=== PATIENT | female | born 1975 | race Two or more races ===

== ENCOUNTER 2017-08-12 13:56 | Emergency (ER) | payer MEDICAID ==
[~2017-08-12] VITALS: Ht 170.2 cm; Wt 120.2 kg
[~2017-08-12 13:56] MED LIST: GLIP10TA59 PO; METF500T5 PO
[2017-08-12 15:11] VITALS: BP 148/89
[2017-08-12 15:58] LABS: Urine Blood 3+ /uL (Negative); Urine Specific Gravity 1.004 (1.001-1.035)
[2017-08-12 16:03] LABS: Urine Bacteria FEW /hpf (None Seen); Urine WBC 25 /hpf (0 - 5)
[2017-08-12] MEDS ORDERED: PHENAZOPYRIDINE HCL 100 MG TAB PO ONE (16:15)
== END 2017-08-12 16:21 | disposition home or self-care (01) ==
LOC: ER 13:56
DX: N39.0 Urinary tract infection, site not specified (principal); E11.9 Type 2 diabetes mellitus without complications
CPT/HCPCS: 81001

== ENCOUNTER 2021-02-04 12:07 | Emergency (ER) | payer MEDICAID ==
[~2021-02-04] VITALS: Ht 175.3 cm; Wt 108.9 kg
[~2021-02-04 12:07] MED LIST changes: -GLIP10TA59 PO; +GLIP1TAB8 PO; +METF-916 PO; -METF500T5 PO
[2021-02-04 13:03] LABS: Basophils # (auto) 0.1 10 ^3/uL (0-0.2); Basophils % (auto) 0.8 % (0.0-2.0); Eosinophils # (auto) 0.1 10 ^3/uL (0-0.8); Eosinophils % (auto) 0.7 % (0.0-7.0); Hematocrit 39.2 % (36.0-46.0); Hemoglobin 13.1 g/dL (12.2-16.2); Lymphocytes # (auto) 3.5 10 ^3/uL (0.4-5.4); Lymphocytes % (auto) 31.2 % (10.0-50.0); Mean Corpuscular Hemoglobin 28.1 pg (28.0-32.0); Mean Corpuscular Hgb Conc. 33.4 g/dL (32.0-36.0); Mean Corpuscular Volume 84.3 fL (80.0-100.0); Monocytes # (auto) 0.7 10 ^3/uL (0-1.3); Monocytes % (auto) 5.9 % (0.0-12.0); Neutrophils # (auto) 6.8 10 ^3/uL (1.6-8.6); Neutrophils % (auto) 61.4 % (37.0-80.0); Platelet Count (auto) 316 10^3/uL (140-450); Red Blood Cells 4.65 10^6/uL (4.0-5.20); Red Cell Distribution Width 15.5 % (11.8-14.3); White Blood Cell 11.1 10^3/uL (4.4-10.8)
[2021-02-04 13:10] LABS: Urine Bacteria FEW /hpf (None Seen); Urine Blood 3+ /uL (Negative); Urine Specific Gravity 1.036 (1.001-1.035); Urine WBC 453 /hpf (0 - 5)
[2021-02-04 13:21] LABS: Albumin 3.5 g/dL (3.4-5.0); BUN/Creatinine Ratio 15.2; Calcium 9.3 mg/dL (8.5-10.1)
[2021-02-04 13:24] LABS: Bilirubin, Total 0.3 mg/dL (0.2-1.0)
[2021-02-04] MEDS ORDERED: cefTRIAXone 1GM/50ML D5W 50 ML IV ONE ×2 (14:00)
[2021-02-04] MEDS ORDERED: SODIUM CHLORIDE 0.9% 1,000 ML IV ONE (14:00)
[2021-02-04 15:03] VITALS: BP 141/69
== END 2021-02-04 15:39 | disposition home or self-care (01) ==
LOC: ER 12:07
DX: N93.8 Other specified abnormal uterine and vaginal bleeding (principal); N39.0 Urinary tract infection, site not specified; E11.9 Type 2 diabetes mellitus without complications; Z79.899 Other long term (current) drug therapy
CPT/HCPCS: 36415; 74176; 80053; 81001; 84702; 85025; 85049; 96365; 99284; J0696; J7030

== ENCOUNTER 2021-02-16 12:21 | Emergency (ER) | payer MEDICAID ==
[~2021-02-16] VITALS: Ht 175.3 cm; Wt 108.9 kg
[2021-02-16 13:38] LABS: Basophils # (auto) 0.1 10 ^3/uL (0-0.2); Basophils % (auto) 0.5 % (0.0-2.0); Eosinophils # (auto) 0.2 10 ^3/uL (0-0.8); Eosinophils % (auto) 1.5 % (0.0-7.0); Hematocrit 36.8 % (36.0-46.0); Hemoglobin 12.2 g/dL (12.2-16.2); Lymphocytes # (auto) 3.5 10 ^3/uL (0.4-5.4); Lymphocytes % (auto) 32.6 % (10.0-50.0); Mean Corpuscular Hemoglobin 27.7 pg (28.0-32.0); Mean Corpuscular Hgb Conc. 33.1 g/dL (32.0-36.0); Mean Corpuscular Volume 83.8 fL (80.0-100.0); Monocytes # (auto) 0.6 10 ^3/uL (0-1.3); Monocytes % (auto) 5.7 % (0.0-12.0); Neutrophils # (auto) 6.4 10 ^3/uL (1.6-8.6); Neutrophils % (auto) 59.7 % (37.0-80.0); Red Blood Cells 4.39 10^6/uL (4.0-5.20); Red Cell Distribution Width 15.2 % (11.8-14.3); White Blood Cell 10.7 10^3/uL (4.4-10.8)
[2021-02-16 13:55] LABS: Urine Bacteria NONE SEEN /hpf (None Seen); Urine Blood 3+ /uL (Negative); Urine WBC 1016 /hpf (0 - 5)
[2021-02-16 13:57] LABS: Urine Specific Gravity 1.028 (1.001-1.035)
[2021-02-16 14:07] LABS: Potassium 4.4 mmol/L (3.5-5.1)
[2021-02-16 14:25] LABS: Albumin 3.6 g/dL (3.4-5.0); BUN/Creatinine Ratio 24.6; Bilirubin, Total 0.2 mg/dL (0.2-1.0); Calcium 9.2 mg/dL (8.5-10.1)
[2021-02-16 15:20] VITALS: BP 130/74
== END 2021-02-16 15:23 | disposition home or self-care (01) ==
LOC: ER 12:21
DX: N93.8 Other specified abnormal uterine and vaginal bleeding (principal); N39.0 Urinary tract infection, site not specified; E11.9 Type 2 diabetes mellitus without complications; Z79.899 Other long term (current) drug therapy
CPT/HCPCS: 36415; 80053; 81001; 85025

== ENCOUNTER 2025-04-30 08:49 | Inpatient (IN) | payer MEDICAID ==
[~2025-04-30] VITALS: Ht 175.3 cm; Wt 104.2 kg
[~2025-04-30 08:49] MED LIST changes: +METF-1145 PO; -METF-916 PO
--- NOTE | 2025-04-30 09:14 | ED.PDOC ---
GI ASSESSMENT HPI Comments A 50 YEAR OLD FEMALE PRESENTS TO THE ED WITH COMPLAINT OF ABDOMINAL PAIN. PATIENT REPORTS HAVING LEFT-SIDED ABDOMINAL PAIN FOR THE PAST WEEK ASSOCIATED WITH NAUSEA AND DIARRHEA. PATIENT STATES THAT THE PAIN SOMETIMES RADIATES DOWN TO THE LEFT LOWER QUADRANT REGION. PER PT, SHE WAS UNABLE TO SLEEP DUE TO THE PAIN LAST NIGHT. PATIENT DENIES FEVER, CHILLS, SHORTNESS OF BREATH, CHEST PAIN, ABDOMINAL PAIN, NAUSEA, VOMITING, HEADACHE, OR OTHER COMPLAINTS. NO OTHER SYMPTOMS OR MODIFYING FACTORS AT THIS TIME. PATIENT IS ALERT, ORIENTED X 4, AND HAS STEADY GAIT. Chief Complaint: Abdominal Pain Time Seen by MD: 09:00 Primary Care Provider: ALYSHA Reviewed Notes: Nurses Notes, Medications, Allergies (FOR REVIEW ABDOMINAL PAIN ALL RE-INJURY ANYTHING SCAN WAS WIDENING.) Allergies: Coded Allergies: NO KNOWN ALLERGIES (Unverified , 04/16/15) Home Meds Reported Medications Atorvastatin Calcium (ATORVASTATIN CALCIUM) 10 Mg Tab 04/30/25 Metformin Hydrochloride (Metformin Hcl Er) 500 Mg Tab, 500 MG PO BID, #60 04/16/15 Glipizide (Glipizide Xl) 10 Mg Tab, 10 MG PO BID, #60 04/16/15 Information Source: Patient Mode of Arrival: Ambulatory Timing: Days Duration: Since onset (ATINT DAYS), Days Prehospital treatment: None Quality: None Vomitus: None Stool: Loose Severity: Moderate Recent: None Recent Hx of: None Pain Location: RUQ, RLQ Associated sign and symptoms: Nausea, Diarrhea, Abdominal Pain Past Medical History PAST MEDICAL HISTORY: DM Surgical History: CROP AND SOIL TECHNICIAN History: No Pertinent CROP AND SOIL TECHNICIAN History Family History Family History: Reviewed,noncontributory to illness, Unknown Social History Smoker: Non-Smoker Alcohol: Denies ETOH Use Drugs: Denies Drug Use, Cocaine Lives In: Home Constitutional: denies: chills, diaphoresis, fatigue, fever, malaise, sweats, weakness, others EENTM: denies: blurred vision, double vision, ear bleeding, ear discharge, ear drainage, ear pain, ear ringing, eye pain, eye redness, hearing loss, mouth pain, mouth swelling, nasal discharge, nose bleeding, nose congestion, nose pain, photophobia, tearing, throat pain, throat swelling, voice changes, others Respiratory: denies: cough, hemoptysis, orthopnea, SOB at rest, shortness of breath, SOB with excertion, stridor, wheezing, others Cardiovascular: denies: chest pain, dizzy spells, diaphoresis, Dyspnea on exertion, edema, irregular heart beat, left arm pain, lightheadedness, palpitations, PND, syncope, others Gastrointestinal: reports: abdominal pain, diarrhea, nausea; denies: abdomen distended, blood streaked bowels, constipated, dysphagia, difficulty swallowing, hematemesis, melena, poor appetite, poor fluid intake, rectal bleeding, rectal pain, vomiting, others Genitourinary: denies: abnormal vagina bleeding, burning, dyspareunia, dysuria, flank pain, frequency, hematuria, incontinence, pain, , vagina discharge, urgency, others Neurological: denies: dizziness, fainting, headache, left sided numbness, left sided weakness, numbness, paresthesia, pre-existing deficit, right sided numbness, right sided weakness, seizure, speech problems, tingling, tremors, weakness, others Musculoskeletal: denies: back pain, gout, joint pain, joint swelling, muscle pain, muscle stiffness, neck pain, others Integumetry: denies: bruises, change in color, change in hair/nails, dryness, laceration, lesions, lumps, rash, wounds, others Allergic/Immunocompromised: denies: Difficulty Healing, Frequent Infections, Hives, Itching, others Hematologic/Lymphatic: denies: anemia, blood clots, easy bleeding, easy bruising, swollen glands, others Endocrine: denies: excessive hunger, excessive sweating, excessive thirst, excessive urination, flushing, intolerance to cold, intolerance to heat, unexplained weight gain, unexplained weight loss, others Psychiatric: denies: anxiety, bipolar disorder, depression, hopeless, panic disorder, schizophrenia, sleepless, suicidal, others All Other Systems: Reviewed and Negative Physical Exam General Appearance: No Apparent Distress, Normal HEENT: Normal ENT Inspection, Pharynx Normal, TMs Normal Neck: Full Range of Motion, Non-Tender, Normal, Normal Inspection Respiratory: Chest Non-Tender, Lungs Clear, No Accessory Muscle Use, No Respiratory Distress, Normal Breath Sounds Cardiovascular: No Edema, No JVD, No Murmur, No Gallop, Normal Peripheral Pulses, Regular Rate/Rhythm Breast Exam: Deferred Gastrointestinal: LLQ, No Organomegaly, No Pulsatile Mass, Normal Bowel Sounds, Soft, Tenderness (LEFT LOWER ABD WITH MILD GUARDING, NO REBOUND TENDERNESS. ) Genitalia: Deferred Pelvic: Deferred Rectal: Deferred Extremities: No calf tenderness, Normal capillary refill, Normal inspection, Normal range of motion, Non-tender, No pedal edema Musculoskeletal : Apperance: Normal Neurologic: Alert, advertising production manager II-XII nml as Tested, No Motor Deficits, Normal Affect, Normal Mood, No Sensory Deficits Cerebellar Function: Normal Reflexes: Normal Skin: Dry, Normal Color, Warm Peripheral Pulses: 2+ carotid (R), 2+ carotid (L) Lymphatic: No Adenopathy Was a procedure done? Was a procedure done?: No GI differential Dx Differential Diagnosis: Cholangitis, Cholecystitis, Diverticular disease, Gastritis/PUD, Gastroenteritis, UTI, Urolithiasis X-Ray, Labs, Meds, VS Vital Signs Date Time Temp Pulse Resp B/P (MAP) Pulse Ox O2 Delivery O2 Flow Rate FiO2 04/30/25 11:35 98.8 78 18 131/60 (83) 96 98.8 04/30/25 11:35 78 18 96 Room Air 04/30/25 09:15 86 18 97 Room Air 04/30/25 09:15 86 18 137/63 (87) 97 04/30/25 08:52 99.7 89 20 142/77 97 99.7 Lab Test 04/30/25 10:19 04/30/25 09:05 Range/Units Urine Color Light-yellow Yellow Urine Clarity Clear Clear Urine pH 6.5 5.0-9.0 Urine Specific [place] 1.025 1.001-1.035 Urine Protein Negative Negative Urine Ketones 1+ H Negative Urine Blood Negative Negative /uL Urine Nitrite Negative Negative Urine Bilirubin Negative Negative Urine Urobilinogen Normal Negative mg/dL Urine Leukocyte Esterase Negative Negative /uL Urine RBC 2 0 - 4 /hpf Urine Microscopic WBC 1 0-5 /HPF Urine Squamous Epithelial Cells Few <5 /hpf Urine Bacteria Few H None Seen /hpf Urine Glucose 4+ H Normal mg/dL White Blood Count 10.4 4.4-10.8 10^3/uL Red Blood Count 4.71 4.0-5.20 10^6/uL Hemoglobin 14.0 12.2-16.2 g/dL Hematocrit 41.5 36.0-46.0 % Mean Corpuscular Volume 88.1 80.0-100.0 fL Mean Corpuscular Hemoglobin 29.8 28.0-32.0 pg Mean Corpuscular Hemoglobin Concent 33.8 32.0-36.0 g/dL Red Cell Distribution Width 14.2 11.8-14.3 % Platelet Count 261 140-450 10^3/uL Mean Platelet Volume 7.4 6.9-10.8 fL Neutrophils (%) (Auto) 67.6 37.0-80.0 % Lymphocytes (%) (Auto) 23.7 10.0-50.0 % Monocytes (%) (Auto) 7.7 0.0-12.0 % Eosinophils (%) (Auto) 0.7 0.0-7.0 % Basophils (%) (Auto) 0.3 0.0-2.0 % Neutrophils # (Auto) 7.0 1.6-8.6 10 ^3/uL Lymphocytes # (Auto) 2.5 0.4-5.4 10 ^3/uL Monocytes # (Auto) 0.8 0-1.3 10 ^3/uL Eosinophils # (Auto) 0.1 0-0.8 10 ^3/uL Basophils # (Auto) 0 0-0.2 10 ^3/uL Nucleated Red Blood Cells 0.0 % Sodium Level 139 136-145 mmol/L Potassium Level 3.9 3.5-5.1 mmol/L Chloride Level 100 98-107 mmol/L Carbon Dioxide Level 29 20-31 mmol/L Anion Gap 10 5-15 Blood Urea Nitrogen 9 9-23 mg/dL Creatinine 0.79 0.550-1.02 mg/dL Glomerular Filtration Rate Calc 90 >90 mL/min BUN/Creatinine Ratio 11.4 10.0-20.0 Serum Glucose 145 H 74-106 mg/dL Hemoglobin A1c 6.7 H <5.7 % A1C Calcium Level 9.6 8.7-10.4 mg/dL Total Bilirubin 0.8 0.2-1.0 mg/dL Aspartate Amino Transferase (AST) 25 13-40 U/L Alanine Aminotransferase (ALT) 38 7-40 U/L Alkaline Phosphatase 101 46-116 U/L Total Protein 7.8 5.7-8.2 g/dL Albumin 4.6 3.2-4.8 g/dL Lipase 39 12-53 U/L Current Medications Medications (Trade) Dose Ordered Sig/Melissa Route Start Time Stop Time Status Last Admin Levofloxacin/ Dextrose 100 ml @ 100 mls/hr ONCE ONCE IV 04/30/25 11:15 04/30/25 12:15 DC 04/30/25 11:45 Metronidazole 100 ml @ 100 mls/hr ONCE ONCE IV 04/30/25 11:15 04/30/25 12:15 DC 04/30/25 11:46 Ketorolac Tromethamine (Toradol Injection) 30 mg ONCE ONCE IV 04/30/25 11:15 04/30/25 11:29 DC 04/30/25 11:45 Sodium Chloride 1,000 ml @ 1,000 mls/hr Q1H ONCE IV 04/30/25 11:15 04/30/25 12:15 DC 04/30/25 11:33 PATIENT: PERFECTO ECHAVARRIAACCT: [id number]: [id number] : 1975 LOC: ER ROOM / BED: / AGE / SEX: 50 / F ADM STATUS: REG ER SERVICE 0912 ORDERING PHYSICIAN: VICKIE HARRIS PROCEDURE(s): ABPL - CT AB PEL WO CON-NO ORAL OR IV REASON: LEFT SIDE ABD PAIN ORDER NUMBER(s): [id number], ACCESSION NUMBER(s): [id number] Exam: CT CT AB PEL WO CON-NO ORAL OR IV History: LEFT SIDE ABD PAIN Comparison Study: US PELVIC TRANS AB AND TRANSVAG on DOS: 05/09/24 Technique: Multidetector spiral CT of the abdomen was performed from lung bases to pubic symphysis. Imaging was performed without IV contrast. Axial, coronal and sagittal multiplanar reformats were obtained from the axial data set by the technologist. Radiation Dose : 1. Abdomen/Pelvis: CTDIvol 17 mGy, DLP 899 mGy*cm. Findings: Evaluation of solid organs is limited due to lack of intravenous contrast use. Lung Bases: No acute or significant lung base finding. Normal heart size. No pleural or pericardial effusion. Liver: The liver is normal in size. No focal lesions. Gallbladder and Biliary Tree: Unremarkable Spleen: Unremarkable Pancreas: The pancreas is grossly normal in appearance. Adrenal Glands: Unremarkable Kidneys: Right kidney is surgically absent. The left kidney is unremarkable Bladder: Grossly unremarkable for degree of distention. Bowel: The stomach is grossly normal in appearance. Acute diverticulitis of the distal descending colon. No adjacent abscess identified. The appendix is not visualized; however, no secondary findings of acute appendicitis identified. Ascites: Absent Lymphadenopathy: No mesenteric, retroperitoneal or periportal lymphadenopathy. Abdominal Wall and Mesentery: Unremarkable. Vasculature: The visualized abdominal aorta is normal in size and caliber. Evaluation of abdominal and pelvic vessels is limited due to lack of intravenous contrast. Pelvic Organs: Unremarkable Musculoskeletal: No aggressive focal bony lesions, acute fractures or dislocation. IMPRESSION: 1. Acute diverticulitis of the distal descending colon. 2. No adjacent abscess identified. Radiation optimization: All CT scans at this facility use at least one of these dose optimization techniques: automated exposure control mA and/or kV adjustment per patient size (includes targeted exams where dose is matched to clinical indication) or iterative reconstruction. ATED BY: TERESA MEYERS MD DICTATED DATE/TIME: 04/30/251046 SIGNED BY: TERESA MEYERS MD SIGNED DATE/TIME: 04/30/251046 CC: X-Ray, Labs, Meds, VS Comment EXTERNAL MEDICAL RECORDS REVIEWED: [NONE] INDEPENDENT HISTORIANS: [NONE] SOCIAL DETERMINANTS OF HEALTH: [NONE] LABS ORDERED: UA, LIPASE, CMP, CBC REVIEWED AND INTERPRETED RESULTS: NONE IMAGING ORDERED: CT ABDOMEN TREATMENTS ORDERED: 0.9 NS 1L IV, LEVAQUIN 500MG IVP, FLAGYL 500MG IVP AND TORADOL 30MG IVP. PROCEDURES PERFORMED: NONE CRITICAL CARE TIME: NONE I HAVE DISCUSSED THE PATIENT WITH THE ATTENDING PHYSICIAN DR. JOHNSON AND HE AGREES WITH THE PATIENT'S PLAN OF CARE AND DISPOSITION. Time of 1ST Reevaluation: 11:00 Reevaluation 1ST: Unchanged Patient Education/Counseling: Diagnosis, Treatment Family Education/Counseling: Diagnosis, Treatment SEPSIS Sepsis Screen Date sepsis recognized/suspect: Apr 30, 2025 Time Sepsis recognized/suspect: 0854 Recent Procedure: No On Antibiotic Therapy: No Respiratory Rate >20: No Heart Rate >90: No Temp<36 C (96.8 F) or >38.3 C: No SBP <90 or MAP <65 mmHG: No New Acute Mental Status Change: No Is the patient on CPAP, BIPAP,: No Physician Orders Ct Ab Pel Wo Con-No Oral Or Iv (04/30/25 09:12) Heplock Iv (04/30/25 ) Vital Signs Date Time Temp Pulse Resp B/P (MAP) Pulse Ox O2 Delivery O2 Flow Rate FiO2 04/30/25 11:35 98.8 78 18 131/60 (83) 96 98.8 04/30/25 11:35 78 18 96 Room Air 04/30/25 09:15 86 18 97 Room Air 04/30/25 09:15 86 18 137/63 (87) 97 04/30/25 08:52 99.7 89 20 142/77 97 99.7 Laboratory Tests Test 04/30/25 09:05 White Blood Count 10.4 10^3/uL (4.4-10.8) Medications Medications Dose Ordered Sig/Melissa Route Start Time Stop Time Status Last Admin Dose Admin Ketorolac Tromethamine 30 mg ONCE ONCE IV 04/30/25 11:15 04/30/25 11:29 DC 04/30/25 11:45 Levofloxacin/ Dextrose 100 ml @ 100 mls/hr ONCE ONCE IV 04/30/25 11:15 04/30/25 12:15 DC 04/30/25 11:45 Metronidazole 100 ml @ 100 mls/hr ONCE ONCE IV 04/30/25 11:15 04/30/25 12:15 DC 04/30/25 11:46 Sodium Chloride 1,000 ml @ 1,000 mls/hr Q1H ONCE IV 04/30/25 11:15 04/30/25 12:15 DC 04/30/25 11:33 Departure 1 Departure Time of Disposition: 11:00 Impression: Primary Impression: Acute diverticulitis Disposition: ADMITTED INPATIENT Condition: Serious Critical Care Note Critical Care Time?: No Stability Stability form required: Yes Unstable for transfer: Requires medication, ED Physician Assesment, Possible rapid decline I personally scribed for VICKIE HARRIS ([email or web address]) on 04/30/25 at 09:14. Electronically submitted by Kayden Mcclain ([email or web address]). I personally scribed for VICKIE HARRIS ([email or web address]) on 04/30/25 at 11:08. Electronically submitted by Kayden Mcclain ([email or web address]). VICKIE HARRIS Apr 30, 2025 09:14
[2025-04-30 09:42] LABS: Hematocrit 41.5 % (36.0-46.0); Hemoglobin 14.0 g/dL (12.2-16.2); Mean Corpuscular Hemoglobin 29.8 pg (28.0-32.0); Mean Corpuscular Volume 88.1 fL (80.0-100.0); Nucleated Red Blood Cells % 0.0 %
[2025-04-30 10:04] LABS: Alanine Aminotransferase 38 U/L (7-40); Alkaline Phosphatase 101 U/L (46-116); Anion Gap 10 (5-15); BUN/Creatinine Ratio 11.4 (10.0-20.0); Blood Urea Nitrogen 9 mg/dL (9-23); Calcium 9.6 mg/dL (8.7-10.4); Carbon Dioxide 29 mmol/L (20-31); Chloride 100 mmol/L (98-107); Potassium 3.9 mmol/L (3.5-5.1); Sodium 139 mmol/L (136-145); Total Protein 7.8 g/dL (5.7-8.2)
[2025-04-30 10:05] LABS: Albumin 4.6 g/dL (3.2-4.8); Bilirubin, Total 0.8 mg/dL (0.2-1.0); Glucose 145 mg/dL (74-106)
[2025-04-30 10:40] LABS: Urine Protein, UAD Negative (Negative)
[2025-04-30 10:41] LABS: Lipase 39 U/L (12-53)
--- NOTE | 2025-04-30 10:50 | DVH ---
Exam: CT CT AB PEL WO CON-NO ORAL OR IV History: LEFT SIDE ABD PAIN Comparison Study: US PELVIC TRANS AB AND TRANSVAG on DOS: 05/09/24 Technique: Multidetector spiral CT of the abdomen was performed from lung bases to pubic symphysis. Imaging was performed without IV contrast. Axial, coronal and sagittal multiplanar reformats were ob tained from the axial data set by the technologist. Radiation Dose : 1. Abdomen/Pelvis: CTDIvol 17 mGy, DLP 899 mGy*cm. Findings: Evaluation of solid organs is limited due to lack of intravenous contrast use. Lung Bases: No acute or significant lung base finding. Normal heart size. No pleural or pericardial effusion. Liver: The liver is normal in size. No focal lesions. Gallbladder and Biliary Tree: Unremarkable Spleen: Unremarkable Pancreas: The pancreas is grossly normal in appearance. Adrenal Glands: Unremarkable Kidneys: Right kidney is surgically absent. The left kidney is unremarkable Bladder: Grossly unremarkable for degree of distention. Bowel: The stomach is grossly normal in appearance. Acute diverticulitis of the distal descending col on. No adjacent abscess identified. The appendix is not visualized; however, no secondary findings of acute appendicitis identified. Ascites: Absent Lymphadenopathy: No mesenteric, retroperitoneal or periportal lymphadenopathy. Abdominal Wall and Mesentery: Unremarkable. Vasculature: The visualized abdominal aorta is normal in size and caliber. Evaluation of abdominal a nd pelvic vessels is limited due to lack of intravenous contrast. Pelvic Organs: Unremarkable Musculoskeletal: No aggressive focal bony lesions, acute fractures or dislocation. IMPRESSION: 1. Acute diverticulitis of the distal descending colon. 2. No adjacent abscess identified. Radiation optimization: All CT scans at this facility use at least one of these dose optimization satnam hniques: automated exposure control mA and/or kV adjustment per patient size (includes targeted exam s where dose is matched to clinical indication) or iterative reconstruction.
[2025-04-30] MEDS: SODIUM CHLORIDE 0.9% 1,000 ML IV ONE (11:33)
[2025-04-30] MEDS: KETOROLAC TROMETH 30 MG/ML 1ML VIAL IV ONE (11:45)
--- NOTE | 2025-04-30 12:28 | DVHHP2 ---
History of Present Illness Reason for Visit: Abdominal pain History of Present Illness Leticia Rogers is a 50-year-old female with past medical history of diabetes and who presents to the ED with abdominal pain with nausea and vomiting that started 6 weeks ago. She reports that the pain is 7/10 pressure-like and constant in the left lower quadrant radiating to her back. She reports that the pain has worsened over the last week with diarrhea. Patient also reports that she was only born with a left kidney. She is with her son at the chair side. Patient denies any recent trauma or injury, recent sick contacts, recent ingestion of spoiled food, recent travels, chest pain, shortness of breath, fever, chills, lightheadedness, weakness, dizziness, or urinary symptoms. Endocrine: Diabetes Past Medical History Unilateral renal agenesis Past Surgical History: Family History: DM, Hyperlipidemia, Hypertension, Other (Mom with hypertension and hyperlipidemia. Dad with hypertension and diabetes.) Smoke: No ALCOHOL: none Drugs: None Lives: with Family Domestic Violence: Neg Review of Systems Gastrointestinal: Nausea, Vomiting, Abdominal Pain, Diarrhea Allergies: Coded Allergies: NO KNOWN ALLERGIES (Unverified , 04/16/15) Exam Vital Signs Vital Signs Date Time Temp Pulse Resp B/P (MAP) Pulse Ox O2 Delivery O2 Flow Rate FiO2 04/30/25 11:35 98.8 78 18 131/60 (83) 96 98.8 04/30/25 11:35 Room Air General Appearance: Alert, Oriented X3, Cooperative, No acute distress HEENT: Atraumatic, PERRLA, EOMI, Mucous membr. moist/pink Respiratory: Clear to auscultation, Normal air movement Cardiovascular: Regular rate, Normal S1, Normal S2, No murmurs Abdominal: Normal bowel sounds, Soft, Other (Tenderness left lower quadrant upon palpation) Extremities: No clubbing, No cyanosis, No edema, Normal pulses, No tenderness/swelling Skin: No significant lesion Neuro: Normal gait, Normal speech, Strength at 5/5 X4 ext, Normal tone, Sensation intact Psych/Mental Status: Mental status NL, Mood NL Labs/Xrays Labs Test 04/30/25 10:19 04/30/25 09:05 Range/Units Urine Color Light-yellow Yellow Urine Clarity Clear Clear Urine pH 6.5 5.0-9.0 Urine Specific [place] 1.025 1.001-1.035 Urine Protein Negative Negative Urine Ketones 1+ H Negative Urine Blood Negative Negative /uL Urine Nitrite Negative Negative Urine Bilirubin Negative Negative Urine Urobilinogen Normal Negative mg/dL Urine Leukocyte Esterase Negative Negative /uL Urine RBC 2 0 - 4 /hpf Urine Microscopic WBC 1 0-5 /HPF Urine Squamous Epithelial Cells Few <5 /hpf Urine Bacteria Few H None Seen /hpf Urine Glucose 4+ H Normal mg/dL White Blood Count 10.4 4.4-10.8 10^3/uL Red Blood Count 4.71 4.0-5.20 10^6/uL Hemoglobin 14.0 12.2-16.2 g/dL Hematocrit 41.5 36.0-46.0 % Mean Corpuscular Volume 88.1 80.0-100.0 fL Mean Corpuscular Hemoglobin 29.8 28.0-32.0 pg Mean Corpuscular Hemoglobin Concent 33.8 32.0-36.0 g/dL Red Cell Distribution Width 14.2 11.8-14.3 % Platelet Count 261 140-450 10^3/uL Mean Platelet Volume 7.4 6.9-10.8 fL Neutrophils (%) (Auto) 67.6 37.0-80.0 % Lymphocytes (%) (Auto) 23.7 10.0-50.0 % Monocytes (%) (Auto) 7.7 0.0-12.0 % Eosinophils (%) (Auto) 0.7 0.0-7.0 % Basophils (%) (Auto) 0.3 0.0-2.0 % Neutrophils # (Auto) 7.0 1.6-8.6 10 ^3/uL Lymphocytes # (Auto) 2.5 0.4-5.4 10 ^3/uL Monocytes # (Auto) 0.8 0-1.3 10 ^3/uL Eosinophils # (Auto) 0.1 0-0.8 10 ^3/uL Basophils # (Auto) 0 0-0.2 10 ^3/uL Nucleated Red Blood Cells 0.0 % Sodium Level 139 136-145 mmol/L Potassium Level 3.9 3.5-5.1 mmol/L Chloride Level 100 98-107 mmol/L Carbon Dioxide Level 29 20-31 mmol/L Anion Gap 10 5-15 Blood Urea Nitrogen 9 9-23 mg/dL Creatinine 0.79 0.550-1.02 mg/dL Glomerular Filtration Rate Calc 90 >90 mL/min BUN/Creatinine Ratio 11.4 10.0-20.0 Serum Glucose 145 H 74-106 mg/dL Calcium Level 9.6 8.7-10.4 mg/dL Total Bilirubin 0.8 0.2-1.0 mg/dL Aspartate Amino Transferase (AST) 25 13-40 U/L Alanine Aminotransferase (ALT) 38 7-40 U/L Alkaline Phosphatase 101 46-116 U/L Total Protein 7.8 5.7-8.2 g/dL Albumin 4.6 3.2-4.8 g/dL Lipase 39 12-53 U/L Exam: CT CT AB PEL WO CON-NO ORAL OR IV History: LEFT SIDE ABD PAIN Comparison Study: US PELVIC TRANS AB AND TRANSVAG on DOS: 05/09/24 Technique: Multidetector spiral CT of the abdomen was performed from lung bases to pubic symphysis. Imaging was performed without IV contrast. Axial, coronal and sagittal multiplanar reformats were obtained from the axial data set by the technologist. Radiation Dose : 1. Abdomen/Pelvis: CTDIvol 17 mGy, DLP 899 mGy*cm. Findings: Evaluation of solid organs is limited due to lack of intravenous contrast use. Lung Bases: No acute or significant lung base finding. Normal heart size. No pleural or pericardial effusion. Liver: The liver is normal in size. No focal lesions. Gallbladder and Biliary Tree: Unremarkable Spleen: Unremarkable Pancreas: The pancreas is grossly normal in appearance. Adrenal Glands: Unremarkable Kidneys: Right kidney is surgically absent. The left kidney is unremarkable Bladder: Grossly unremarkable for degree of distention. Bowel: The stomach is grossly normal in appearance. Acute diverticulitis of the distal descending colon. No adjacent abscess identified. The appendix is not visualized; however, no secondary findings of acute appendicitis identified. Ascites: Absent Lymphadenopathy: No mesenteric, retroperitoneal or periportal lymphadenopathy. Abdominal Wall and Mesentery: Unremarkable. Vasculature: The visualized abdominal aorta is normal in size and caliber. Evaluation of abdominal and pelvic vessels is limited due to lack of intravenous contrast. Pelvic Organs: Unremarkable Musculoskeletal: No aggressive focal bony lesions, acute fractures or dislocation. IMPRESSION: 1. Acute diverticulitis of the distal descending colon. 2. No adjacent abscess identified. SEPSIS Sepsis Screen Date sepsis recognized/suspect: Apr 30, 2025 Time Sepsis recognized/suspect: 0854 Recent Procedure: No On Antibiotic Therapy: No Respiratory Rate >20: No Heart Rate >90: No Temp<36 C (96.8 F) or >38.3 C: No SBP <90 or MAP <65 mmHG: No New Acute Mental Status Change: No Is the patient on CPAP, BIPAP,: No Physician Orders Ct Ab Pel Wo Con-No Oral Or Iv (04/30/25 09:12) Heplock Iv (04/30/25 ) Vital Signs Date Time Temp Pulse Resp B/P (MAP) Pulse Ox O2 Delivery O2 Flow Rate FiO2 04/30/25 11:35 98.8 78 18 131/60 (83) 96 98.8 04/30/25 11:35 78 18 96 Room Air 04/30/25 09:15 86 18 97 Room Air 04/30/25 09:15 86 18 137/63 (87) 97 04/30/25 08:52 99.7 89 20 142/77 97 99.7 Laboratory Tests Test 04/30/25 09:05 White Blood Count 10.4 10^3/uL (4.4-10.8) Medications Medications Dose Ordered Sig/Melissa Route Start Time Stop Time Status Last Admin Dose Admin Ketorolac Tromethamine 30 mg ONCE ONCE IV 04/30/25 11:15 04/30/25 11:29 DC 04/30/25 11:45 30 MG Levofloxacin/ Dextrose 100 ml @ 100 mls/hr ONCE ONCE IV 04/30/25 11:15 04/30/25 12:15 DC 04/30/25 11:45 100 MLS/HR Metronidazole 100 ml @ 100 mls/hr ONCE ONCE IV 04/30/25 11:15 04/30/25 12:15 DC 04/30/25 11:46 100 MLS/HR Sodium Chloride 1,000 ml @ 1,000 mls/hr Q1H ONCE IV 04/30/25 11:15 04/30/25 12:15 DC 04/30/25 11:33 1,000 MLS/HR Assessment/Plan Assessment/Plan Assessment Intractable abdominal pain likely due to acute diverticulitis Obesity 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) History of diabetes History of Plan Admit to med surge Antiemetics Pain management Hemoglobin A1c ISS and Accu-Cheks IV antibiotics-Zosyn Flagyl + Levaquin given in ED CT abdomen and pelvis noted Lipase Renal ultrasound Diet - clear liquids Home medications reconciled DVT prophylaxis-SCDs PUD prophylaxis-PPIs Discussed plan of care with patient and nurse Counseled patient on lifestyle modifications, diet, and exercise [id number] Preventive counseling healthy eating habits, physical activity, and regular checkups Plan discussed with: Patient Date of Service: Apr 30, 2025 Billing Provider: CORRINA ZAMORA Common Visit Codes: 10063-[id number] INP/OBS CARE (HIGH) Secondary Visit Codes: 25519-[id number] COUNSELING IND CORRINA ZAMORA Apr 30, 2025 12:28
[2025-04-30] MEDS ORDERED: ATOR10TA52 (13:54)
[2025-04-30] MEDS ORDERED: HYDROcodone-ACET 5/325MG TAB PO PRN (14:00)
[2025-04-30] MEDS ORDERED: DEXTROSE (50%) 50ML SYRG IV PRN (14:00)
[2025-04-30] MEDS ORDERED: ACETAMINOPHEN 325 MG TAB PO PRN (14:00)
--- NOTE | 2025-04-30 14:43 | DVH ---
RENAL ULTRASOUND History: left kidney Comparison: CT abdomen pelvis from today Technique: Multiple real-time sonographic images of the kidney and bladder were obtained in conjuncti on with Doppler imaging. Findings: The right kidney is nonvisualized/absent. The left kidney measures 13.3 cm and demonstrates no evidence of hydronephrosis, perinephric fluid co llection, or shadowing stone. Left renal Echogenic hilar lesion measuring 3 cm. Urinary bladder: Prevoid urinary bladder volume is 198 mL. Impression: Left renal hilar echogenic lesion measuring 3 cm. Recommend MRI abdomen with and without contrast to evaluate for possible renal mass /neoplasm. No left hydronephrosis. Absent right kidney.
[2025-04-30] MEDS: PIPERACILLIN-TAZOB 3.375GM 100 ML IV ONE (14:45)
[2025-04-30] MEDS: InsuLIN REG 1unit/0.01ml Soln (100units/ml) SC SCH (17:00)
[2025-04-30] MEDS: ACCU-CHEK COMFORT CURVE STRIP VI SCH (17:13)
[2025-04-30] MEDS: MORPHINE SULFATE 4 MG/ML SYR/VIAL IV PRN (17:26)
[2025-04-30 17:28] VITALS: PULSE 62; RESP 18; O2SAT 100
[2025-04-30] MEDS ORDERED: SEMA1INJ2 (17:32)
[2025-04-30] MEDS: ONDANSETRON HCL 4 MG/2 ML VIAL IV PRN (20:19)
[2025-04-30 21:00] VITALS: BP 138/89; PULSE 73; RESP 15; TEMP 98; O2SAT 99
[2025-04-30] MEDS: ATORVASTATIN 20 MG TAB PO SCH (21:55)
[2025-04-30] MEDS: PIPERACILLIN-TAZOB 3.375GM 100 ML IV SCH (22:08)
[2025-05-01] VITALS (7 sets, daily range): BP systolic 118–135; BP diastolic 61–87; PULSE 59–72; RESP 16–18; TEMP 97.4–98.7; O2SAT 95–98
[2025-05-01 08:02] LABS: Hematocrit 36.8 % (36.0-46.0); Hemoglobin 12.6 g/dL (12.2-16.2); Mean Corpuscular Hemoglobin 30.2 pg (28.0-32.0); Mean Corpuscular Volume 88.4 fL (80.0-100.0); Nucleated Red Blood Cells % 0.1 %
[2025-05-01 08:15] LABS: Albumin 4.0 g/dL (3.2-4.8); Alkaline Phosphatase 95 U/L (46-116); Anion Gap 10 (5-15); BUN/Creatinine Ratio 8.8 (10.0-20.0); Bilirubin, Total 0.8 mg/dL (0.2-1.0); Calcium 8.9 mg/dL (8.7-10.4); Carbon Dioxide 29 mmol/L (20-31); Chloride 104 mmol/L (98-107); Potassium 4.4 mmol/L (3.5-5.1); Sodium 143 mmol/L (136-145); Total Protein 6.8 g/dL (5.7-8.2)
[2025-05-01 08:17] LABS: Alanine Aminotransferase 46 U/L (7-40); Blood Urea Nitrogen 7 mg/dL (9-23); Glucose 107 mg/dL (74-106)
--- NOTE | 2025-05-01 14:48 | DVHPN2 ---
Reviewed: H&P Changes from previous H/P or p: No Changes General: Per HPI Gastrointestinal: Nausea, Vomiting, Abdominal Pain, Diarrhea Objective Vitals Vital Signs Date Time Temp Pulse Resp B/P (MAP) Pulse Ox O2 Delivery O2 Flow Rate FiO2 05/01/25 13:00 97.8 68 18 127/78 (94) 98 97.8 04/30/25 20:00 Room Air* 0 21 Intake/Output Intake and Output 05/01/25 07:00 Intake Total 610 ml Balance 610 ml Intake Oral 510 ml IV Total 100 ml # Voids 4 Exam General Appearance: Alert, Oriented X3, Cooperative, No acute distress HEENT: Atraumatic, PERRLA, EOMI, Mucous membr. moist/pink Respiratory: Clear to auscultation, Normal air movement Cardiovascular: Regular rate, Normal S1, Normal S2, No murmurs Abdominal: Normal bowel sounds, Soft, Other (Tenderness left lower quadrant upon palpation) Extremities: No clubbing, No cyanosis, No edema, Normal pulses, No tenderness/swelling Skin: No significant lesion Neuro: Normal gait, Normal speech, Strength at 5/5 X4 ext, Normal tone, Sensation intact Psych/Mental Status: Mental status NL, Mood NL Medications Current Medications Medications Dose Ordered Sig/Melissa Route Start Time Stop Time Status Last Admin Dose Admin Piperacillin Sod/ Tazobactam Sod 100 ml @ 25 mls/hr Q8HR IV 04/30/25 22:00 05/01/25 05:46 25 MLS/HR Diagnostic Test (Pha) 1 strip ACHS 04/30/25 17:00 05/01/25 11:30 1 STRIP Insulin Human Regular ACHS SC 04/30/25 17:00 Dextrose 50 ml UD PRN IV 04/30/25 14:00 Acetaminophen/ Hydrocodone Bitart 1 tab Q4HP PRN PO 04/30/25 14:00 Ondansetron HCl 4 mg Q4HP PRN IV 04/30/25 14:00 04/30/25 20:19 4 MG Acetaminophen 650 mg Q6HP PRN PO 04/30/25 14:00 Morphine Sulfate 2 mg Q4HPRN PRN IV 04/30/25 14:30 04/30/25 17:26 2 MG Atorvastatin Calcium 10 mg HS PO 04/30/25 22:00 Laboratory Results Laboratory Tests 05/01/25 06:08 Chemistry Test 05/01/25 06:08 Albumin 4.0 g/dL (3.2-4.8) Calcium Level 8.9 mg/dL (8.7-10.4) Total Protein 6.8 g/dL (5.7-8.2) LFT Test 05/01/25 06:08 Alanine Aminotransferase (ALT) 46 U/L (7-40) H Alkaline Phosphatase 95 U/L (46-116) Aspartate Amino Transferase (AST) 38 U/L (13-40) Total Bilirubin 0.8 mg/dL (0.2-1.0) Urinalysis Test 04/30/25 10:19 Urine Color Light-yellow (Yellow) Urine Clarity Clear (Clear) Urine pH 6.5 (5.0-9.0) Urine Specific [place] 1.025 (1.001-1.035) Urine Protein Negative (Negative) Urine Ketones 1+ (Negative) H Urine Blood Negative /uL (Negative) Urine Nitrite Negative (Negative) Urine Bilirubin Negative (Negative) Urine Urobilinogen Normal mg/dL (Negative) Urine Leukocyte Esterase Negative /uL (Negative) Urine RBC 2 /hpf (0 - 4) Urine Microscopic WBC 1 /HPF (0-5) Urine Squamous Epithelial Cells Few /hpf (<5) Urine Bacteria Few /hpf (None Seen) H Urine Glucose 4+ mg/dL (Normal) H Labs and/or images reviewed: Labs reviewed by me, Image(s) reviewed by me Assessment/Plan Assessment/Plan 50-year-old female with past medical history of diabetes and who presents to the ED with abdominal pain with nausea and vomiting that started 6 weeks ago. She reports that the pain is 7/10 pressure-like and constant in the left lower quadrant radiating to her back. She reports that the pain has worsened over the last week with diarrhea. Patient also reports that she was only born with a left kidney. She is with her son at the chair side. Patient denies any recent trauma or injury, recent sick contacts, recent ingestion of spoiled food, recent travels, chest pain, shortness of breath, fever, chills, lightheadedness, weakness, dizziness, or urinary symptoms. 05/01: Today patient having some nausea in the a.m., declining Zofran. Continues to have some pain in left lower quadrant. Tender to palpation. No leukocytosis no neutrophilia, intractable abdominal pain, CT with evidence of acute diverticulitis of distal descending colon. Patient is started on IV antibiotics, IV fluids. On clear liquid diet. Antibiotics include Zosyn. Continuing home meds. 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
[2025-05-01] MEDS: SODIUM CHLORIDE 0.9% 1,000 ML IV ONE (17:00)
[2025-05-02] VITALS (7 sets, daily range): BP systolic 127–142; BP diastolic 73–89; PULSE 57–81; RESP 16–20; TEMP 36.6; O2SAT 98–99
[2025-05-02 07:47] LABS: Hematocrit 36.6 % (36.0-46.0); Hemoglobin 12.3 g/dL (12.2-16.2); Mean Corpuscular Hemoglobin 29.8 pg (28.0-32.0); Mean Corpuscular Volume 88.4 fL (80.0-100.0); Nucleated Red Blood Cells % 0.3 %
[2025-05-02 08:08] LABS: Alanine Aminotransferase 39 U/L (7-40); Albumin 3.9 g/dL (3.2-4.8); Alkaline Phosphatase 85 U/L (46-116); Anion Gap 10 (5-15); BUN/Creatinine Ratio 8.5 (10.0-20.0); Bilirubin, Total 0.4 mg/dL (0.2-1.0); Calcium 8.8 mg/dL (8.7-10.4); Carbon Dioxide 26 mmol/L (20-31); Chloride 106 mmol/L (98-107); Potassium 3.9 mmol/L (3.5-5.1); Sodium 142 mmol/L (136-145); Total Protein 6.5 g/dL (5.7-8.2)
[2025-05-02 08:09] LABS: Blood Urea Nitrogen 6 mg/dL (9-23); Glucose 133 mg/dL (74-106)
--- NOTE | 2025-05-02 12:09 | DVHDS2 ---
Discharge Summary Date of Admission Apr 30, 2025 at 13:49 Date of Discharge: May 02, 2025 Labs/Diagnostic Data: Laboratory Results Test 05/02/25 11:32 05/02/25 06:28 04/30/25 10:19 04/30/25 09:05 POC Glucose 114 mg/dl (70-106) White Blood Count 5.9 10^3/uL (4.4-10.8) Red Blood Count 4.13 10^6/uL (4.0-5.20) Hemoglobin 12.3 g/dL (12.2-16.2) Hematocrit 36.6 % (36.0-46.0) Mean Corpuscular Volume 88.4 fL (80.0-100.0) Mean Corpuscular Hemoglobin 29.8 pg (28.0-32.0) Mean Corpuscular Hemoglobin Concent 33.6 g/dL (32.0-36.0) Red Cell Distribution Width 14.1 % (11.8-14.3) Platelet Count 233 10^3/uL (140-450) Mean Platelet Volume 7.7 fL (6.9-10.8) Neutrophils (%) (Auto) 51.6 % (37.0-80.0) Lymphocytes (%) (Auto) 37.5 % (10.0-50.0) Monocytes (%) (Auto) 8.5 % (0.0-12.0) Eosinophils (%) (Auto) 1.8 % (0.0-7.0) Basophils (%) (Auto) 0.6 % (0.0-2.0) Neutrophils # (Auto) 3.0 10 ^3/uL (1.6-8.6) Lymphocytes # (Auto) 2.2 10 ^3/uL (0.4-5.4) Monocytes # (Auto) 0.5 10 ^3/uL (0-1.3) Eosinophils # (Auto) 0.1 10 ^3/uL (0-0.8) Basophils # (Auto) 0 10 ^3/uL (0-0.2) Nucleated Red Blood Cells 0.3 % Sodium Level 142 mmol/L (136-145) Potassium Level 3.9 mmol/L (3.5-5.1) Chloride Level 106 mmol/L (98-107) Carbon Dioxide Level 26 mmol/L (20-31) Anion Gap 10 (5-15) Blood Urea Nitrogen 6 mg/dL (9-23) Creatinine 0.71 mg/dL (0.550-1.02) Glomerular Filtration Rate Calc 102 mL/min (>90) BUN/Creatinine Ratio 8.5 (10.0-20.0) Serum Glucose 133 mg/dL (74-106) Calcium Level 8.8 mg/dL (8.7-10.4) Total Bilirubin 0.4 mg/dL (0.2-1.0) Aspartate Amino Transferase (AST) 24 U/L (13-40) Alanine Aminotransferase (ALT) 39 U/L (7-40) Alkaline Phosphatase 85 U/L (46-116) Total Protein 6.5 g/dL (5.7-8.2) Albumin 3.9 g/dL (3.2-4.8) Urine Color Light-yellow (Yellow) Urine Clarity Clear (Clear) Urine pH 6.5 (5.0-9.0) Urine Specific [place] 1.025 (1.001-1.035) Urine Protein Negative (Negative) Urine Ketones 1+ (Negative) Urine Blood Negative /uL (Negative) Urine Nitrite Negative (Negative) Urine Bilirubin Negative (Negative) Urine Urobilinogen Normal mg/dL (Negative) Urine Leukocyte Esterase Negative /uL (Negative) Urine RBC 2 /hpf (0 - 4) Urine Microscopic WBC 1 /HPF (0-5) Urine Squamous Epithelial Cells Few /hpf (<5) Urine Bacteria Few /hpf (None Seen) Urine Glucose 4+ mg/dL (Normal) Hemoglobin A1c 6.7 % A1C (<5.7) Lipase 39 U/L (12-53) Other Laboratory Tests 05/02/25 06:28 Brief Hx & Hospital Course: 50-year-old female with past medical history of diabetes and who presents to the ED with abdominal pain with nausea and vomiting that started 6 weeks ago. She reports that the pain is 7/10 pressure-like and constant in the left lower quadrant radiating to her back. She reports that the pain has worsened over the last week with diarrhea. Patient also reports that she was only born with a left kidney. She is with her son at the chair side. Patient denies any recent trauma or injury, recent sick contacts, recent ingestion of spoiled food, recent travels, chest pain, shortness of breath, fever, chills, lightheadedness, weakness, dizziness, or urinary symptoms. 05/01: Today patient having some nausea in the a.m., declining Zofran. Continues to have some pain in left lower quadrant. Tender to palpation. No leukocytosis no neutrophilia, intractable abdominal pain, CT with evidence of acute diverticulitis of distal descending colon. Patient is started on IV antibiotics, IV fluids. On clear liquid diet. Antibiotics include Zosyn. Continuing home meds. 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) History of diabetes History of Plan: -Take Augmentin 875 twice daily for 5 days -Take full liquid diet for 1 week , after 1 week of full liquid diet take whole [place] tablespoonful twice daily for 14 days -Continue taking other home medications --hydrate well -Follow up with PCP to review discharge -Continue routine colonoscopies for cancer screening Condition at Discharge: Fair Final Diagnosis/Problems List Acute diverticulitis, without abscess, Intractable abdominal pain likely due to above Obesity 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 Patient was counseled about treatment plan, medications, possible side effects, patientverbalized understanding. All questions were answered to the best of my ability. This discharge took greater then 30 minutes in planning, reviewing documentation, counseling the patient, and discussing with other team members." ASSESSMENT ASSESSMENT Assessment Date of Service: May 02, 2025 Billing Provider: IVY CARTY MD Common Visit Codes: [id number] DISCH DAY >30min IVY CARTY MD May 02, 2025 12:09
[2025-05-02] MEDS ORDERED: AUG875T PO (12:11)
[2025-05-02] MEDS ORDERED: ZOFR4T PO (12:11)
== END 2025-05-02 14:14 | disposition home or self-care (01) | DRG 244 ==
LOC: ER 08:51 → OVERFLOW 13:49 → WEST WING 17:05
PROVIDERS: ADMIT Student in an Organized Health Care Education/Training Program; ATTEND Student in an Organized Health Care Education/Training Program
DX: K57.32 Diverticulitis of large intestine without perforation or abscess without bleeding (principal); E11.9 Type 2 diabetes mellitus without complications; E66.9 Obesity, unspecified; Z79.84 Long term (current) use of oral hypoglycemic drugs; Z79.899 Other long term (current) drug therapy; Z98.891 History of uterine scar from previous surgery; Z83.3 Family history of diabetes mellitus; Z82.49 Family history of ischemic heart disease and other diseases of the circulatory system; Q60.0 Renal agenesis, unilateral; Z68.31 Body mass index [BMI] 31.0-31.9, adult
CPT/HCPCS: 36415; 74176; 76775; 80053; 81001; 82962; 83036; 83690; 85025; 96365; G0378; J1815; J1885; J1956; J2405; J2543; J3490